=== PATIENT | female | born 2000 | race Caucasian/White ===

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

== ENCOUNTER 2022-08-31 06:19 | Inpatient (IN) | payer BC ==
[2022-08-31] MEDS: CYTOTEC PO SCH ×4 (14:22→21:07)
[2022-08-31 14:43] LABS: Absolute Neutrophil Ct (ANC) 5.94 x10^3/uL (1.4-6.9); BASOPHIL % 0.4 % (0.0-0.4); Basophil (Absolute #) 0.04 x10^3/uL (0-0.4); Eosinophil % 0.2 % (0.00-5.0); Eosinophil (Absolute #) 0.02 x10^3/uL (0-0.5); Hematocrit 34.1 % (35-47); Hemoglobin 10.6 g/dL (12.0-16.0); IMMATURE GRAN # 0.04 x10^3u/L (0.00-0.03); IMMATURE GRAN % 0.4 % (0.00-0.4); Lymphocyte (Absolute #) 2.34 x10^3/uL (1.0-4.6); Lymphocytes % 26.1 % (24.0-44.0); Mean Corpuscular Hemoglobin 26.1 pg (26-32); Mean Corpuscular Hgb Concent. 31.1 g/dL (32-36); Monocyte (Absolute #) 0.58 x10^3/uL (0.0-1.3); Monocytes % 6.5 % (0.0-12.0); Neutrophil % 66.4 % (36.0-66.0); Platelet Count 206 x10^3/uL (150-450); Red Blood Count 4.06 x10^6/uL (4.1-5.4); Red Cell Distribution Width 14.1 % (11.5-14.0)
[2022-08-31 15:22] LABS: ABO TYPING A; Antibody Screen NEGATIVE (NEGATIVE); RH TYPING POSITIVE
[2022-08-31 15:27] LABS: Amphetamine,Urine NEGATIVE (NEGATIVE); Barbiturate,Urine NEGATIVE (NEGATIVE); Benzodiazepine,Urine NEGATIVE (NEGATIVE); Cocaine,Urine NEGATIVE (NEGATIVE); Methadone,Urine NEGATIVE (NEGATIVE); Opiate,Urine NEGATIVE (NEGATIVE); PCP,Urine NEGATIVE (NEGATIVE); THC,Urine NEGATIVE (NEGATIVE)
[2022-08-31] MEDS ORDERED: Zofran 4 MG/2 ML VIAL IV PRN (20:00)
[2022-08-31] MEDS ORDERED: XYLOCAINE 1% HCL 20 ML MDV IJ PRN (20:00)
[2022-09-01] MEDS: CYTOTEC PO SCH ×3 (01:15→05:50)
[2022-09-01] MEDS ORDERED: Ephedrine Sulfate 50 MG/ML IV PRN (06:00)
[2022-09-01] MEDS ORDERED: FENTANYL 2 MCG-BUPIV 0.125%-NS 250 ML Epidur 250 ML EPIDURAL SCH (06:00)
[2022-09-01] MEDS: Lactated Ringers 1,000 ML IV SCH ×3 (06:30→15:08)
[2022-09-01] MEDS ORDERED: Lactated Ringers 1,000 ML IV ONE (06:32)
[2022-09-01] MEDS ORDERED: PITOCIN 30 UNITS/ LR 500 ML 500 ML IV ONE (07:52)
[2022-09-01] MEDS ORDERED: PITOCIN 30 UNITS/ LR 500 ML 30 UNITS/500 ML PLAST..BAG IV SCH (08:30)
[2022-09-01] MEDS ORDERED: NORCO 5/325 MG PO PRN (16:18)
[2022-09-01] MEDS ORDERED: TYLENOL EXTRA STRENGTH 500 MG PO PRN (16:18)
[2022-09-01] MEDS ORDERED: LANSINOH 40 GM TOP PRN (16:18)
[2022-09-01] MEDS ORDERED: Dermoplast Spray TP PRN (16:18)
[2022-09-01] MEDS ORDERED: Mylicon 80MG PO PRN (16:18)
[2022-09-01] MEDS ORDERED: Dulcolax 10 MG SUPP PR PRN (16:18)
[2022-09-01] MEDS ORDERED: Ambien 10 MG PO PRN (16:18)
[2022-09-01] MEDS ORDERED: Anucort-HC SUPPOSITORY PR PRN (16:18)
[2022-09-01] MEDS ORDERED: CORTISONE 1% CREAM TP PRN (16:18)
[2022-09-01] MEDS ORDERED: Adacel Vial IM ONE (16:18)
[2022-09-01] MEDS: TUCKS TP PRN (17:18)
[2022-09-01] MEDS: TYLENOL EXTRA STRENGTH 500 MG PO PRN (18:17)
[2022-09-01] MEDS: MOTRIN 400 MG PO PRN (23:52)
[2022-09-02 05:01] LABS: Absolute Neutrophil Ct (ANC) 10.89 x10^3/uL (1.4-6.9); BASOPHIL % 0.3 % (0.0-0.4); Basophil (Absolute #) 0.05 x10^3/uL (0-0.4); Eosinophil % 0.3 % (0.00-5.0); Eosinophil (Absolute #) 0.04 x10^3/uL (0-0.5); Hematocrit 30.4 % (35-47); Hemoglobin 9.4 g/dL (12.0-16.0); IMMATURE GRAN # 0.06 x10^3u/L (0.00-0.03); IMMATURE GRAN % 0.4 % (0.00-0.4); Lymphocytes % 22.3 % (24.0-44.0); Mean Cell Volume 83.1 fL (78-100); Mean Corpuscular Hemoglobin 25.7 pg (26-32); Mean Corpuscular Hgb Concent. 30.9 g/dL (32-36); Mean Platelet Volume 11.5 fL (7.5-11.0); Monocyte (Absolute #) 0.84 x10^3/uL (0.0-1.3); Monocytes % 5.5 % (0.0-12.0); Neutrophil % 71.2 % (36.0-66.0); Platelet Count 187 x10^3/uL (150-450); Red Blood Count 3.66 x10^6/uL (4.1-5.4); Red Cell Distribution Width 14.3 % (11.5-14.0); White Blood Count 15.3 x10^3/uL (4.0-10.5)
--- NOTE | 2022-09-02 06:59 | PCM.NOTE ---
Date and Time: 09/02/2257 Subjective Assessment: ppd 1 sp pt resting in bed and doing well without complaints able to ambulate and tolerate diet vss afebrile abd; soft uterus; firm lochia; mild a/p sp ppd 1 anticipate discharge home tomorrow continue present management OBJECTIVE DATA Vital Signs: Vital Signs - 24 hr Temp Pulse Resp BP BP Pulse Ox 09/02/22 04:00 98.0 F 81 16 123/81 98 09/02/22 00:00 99 F 80 18 123/70 09/01/22 20:00 97.6 F 89 16 121/83 97 09/01/22 17:35 69 16 128/74 09/01/22 16:50 79 20 121/68 100 09/01/22 16:30 83 20 124/77 100 09/01/22 16:25 83 20 124/77 100 09/01/22 15:35 90 20 131/64 100 09/01/22 15:15 118 H 22 138/87 09/01/22 15:00 86 22 135/74 09/01/22 14:45 86 22 153/73 09/01/22 14:30 90 22 136/69 09/01/22 14:15 102 H 22 136/69 09/01/22 14:00 102 H 22 136/69 09/01/22 13:45 102 H 22 132/77 09/01/22 13:30 104 H 18 124/77 09/01/22 13:15 99 H 18 138/86 09/01/22 13:00 85 18 114/63 09/01/22 12:45 84 18 115/64 09/01/22 12:30 78 18 113/60 09/01/22 12:15 80 18 117/62 09/01/22 12:00 80 18 119/75 119/75 09/01/22 11:44 83 18 118/74 09/01/22 11:30 18 103/70 09/01/22 11:15 81 18 119/77 09/01/22 11:00 85 18 126/70 09/01/22 10:45 85 18 105/60 09/01/22 10:30 74 20 120/76 09/01/22 10:15 73 18 115/69 09/01/22 10:00 98.2 F 73 18 09/01/22 09:00 98.2 F 68 22 103/61 100 09/01/22 08:00 98.1 F 68 22 119/74 119/74 100 Pain Assessment - Last Documented Pain Intensity [Lower Anterior 2 ] Pain Intensity 4 Pain Scale Used 0-10 Pain Scale Intake and Output: Intake & Output 08/30/22 08/31/22 09/01/22 09/02/22 11:59 11:59 11:59 11:59 Intake Total 1999 1999 Output Total 1600 2200 Balance 400 -200 Weight 74.843 kg Lab Results: Lab Results-Last 24 Hours 09/02/22 Range/Units 04:57 WBC 15.3 H (4.0-10.5) x10^3/uL RBC 3.66 L (4.1-5.4) x10^6/uL Hgb 9.4 L (12.0-16.0) g/dL Hct 30.4 L (35-47) % MCV 83.1 (78-100) fL MCH 25.7 L (26-32) pg MCHC 30.9 L (32-36) g/dL RDW 14.3 H (11.5-14.0) % Plt Count 187 (150-450) x10^3/uL MPV 11.5 H (7.5-11.0) fL Gran % 71.2 H (36.0-66.0) % Immature Gran % (Auto) 0.4 (0.00-0.4) % Nucleat RBC Rel Count 0.0 (0.00-0.1) % Eos # (Auto) 0.04 (0-0.5) x10^3/uL Immature Gran # (Auto) 0.06 H (0.00-0.03) x10^3u/L Absolute Lymphs (auto) 3.40 (1.0-4.6) x10^3/uL Absolute Monos (auto) 0.84 (0.0-1.3) x10^3/uL Absolute Nucleated RBC 0.00 (0.00-0.01) x10^3u/L Lymphocytes % 22.3 L (24.0-44.0) % Monocytes % 5.5 (0.0-12.0) % Eosinophils % 0.3 (0.00-5.0) % Basophils % 0.3 (0.0-0.4) % Absolute Granulocytes 10.89 H (1.4-6.9) x10^3/uL Basophils # 0.05 (0-0.4) x10^3/uL Assessment/Plan (1) Vaginal delivery Current Visit: Yes Status: Acute Code(s): O80 - ENCOUNTER FOR FULL-TERM UNCOMPLICATED DELIVERY
[2022-09-02] MEDS: Docusate Sodium 100 MG PO SCH ×3 (08:44→20:41)
[2022-09-02] MEDS: FERREX 150 PO SCH (08:45)
[2022-09-02] MEDS: MOTRIN 400 MG PO PRN ×2 (09:19→16:34)
[2022-09-02] MEDS: TYLENOL EXTRA STRENGTH 500 MG PO PRN (14:13)
[2022-09-02] MEDS: TUCKS TP PRN (23:24)
[2022-09-03] MEDS: TYLENOL EXTRA STRENGTH 500 MG PO PRN (08:04)
--- NOTE | 2022-09-03 10:20 | PCM.NOTE ---
Date and Time: 09/03/22 1018 Subjective Assessment: ppd 2 sp pt resting in bed and doing well withouti complaints. vss afebrile abd; soft uterus; firm lochia; mild hgb; 9.4 a/p sp ppd 2 dc home today fu office 3 wks OBJECTIVE DATA Vital Signs: Vital Signs - 24 hr Temp Pulse Resp BP Pulse Ox 09/03/22 08:00 98.4 F 79 16 116/77 98 09/03/22 02:00 97.8 F 82 16 132/82 99 09/02/22 20:00 98.2 F 76 16 124/87 99 09/02/22 14:00 97.4 F 87 18 116/75 98 Pain Assessment - Last Documented Pain Intensity [Lower Anterior 1 ] Pain Intensity 1 Pain Scale Used 0-10 Pain Scale Intake and Output: Intake & Output 08/31/22 09/01/22 09/02/22 09/03/22 11:59 11:59 11:59 11:59 Intake Total 1999 2200 600 Output Total 1600 2200 Balance 400 0 600 Weight 74.843 kg Assessment/Plan (1) Vaginal delivery Current Visit: Yes Status: Acute Code(s): O80 - ENCOUNTER FOR FULL-TERM UNCOMPLICATED DELIVERY
--- NOTE | 2022-09-03 10:29 | PCM.DS ---
Discharge Summary Date of Admission: 09/01/22 06:19 Admitting Physician: ANDRES BLEVINS DO Consults: Consults on Case 09/01/22 16:18 Notify Physician ROUTINE 09/02/22 09:00 Navigation ONCE Primary Care Provider: ANDRES BLEVINS DO Allergies Allergies Penicillins Allergy (Verified 08/31/22 14:25) Hospital Summary - Hospital Course Hospital Course: pt admitted on august 31 for oral cytotec and subsequently delivered on september 01 after pitocin given and delivered live baby boy without complication. pt had been at 39 wks gestation at time of admission. during period did well able to ambulate and tolerate diet. hgb stable at 9.4. pt advised to fu in office in 3 wks for check. all questions answered to her satisfaction and at this time stable for discharge. - Vitals & Intake/Output Vital Signs: Vital Signs Temperature 98.4 F 09/03/22 08:00 Pulse Rate 79 09/03/22 08:00 Respiratory Rate 16 09/03/22 08:00 Blood Pressure 116/77 09/03/22 08:00 O2 Sat by Pulse Oximetry 98 09/03/22 08:00 Intake & Output: Intake & Output 08/31/22 09/01/22 09/02/22 09/03/22 11:59 11:59 11:59 11:59 Intake Total 2000 2200 600 Output Total 1600 2200 Balance 400 0 600 Weight 74.843 kg - Lab Result Diagrams: 09/02/22 04:57 - Procedures and Test Procedures and Tests throughout Hospitalization: Therapy Orders & Screens 09/01/22 15:52 Standby ROUTINE Comment: Diagnosis: IUP/Induction of labor Final Diagnosis/Problem List - Final Discharge Diagnosis/Problem (1) Vaginal delivery Current Visit: Yes Status: Acute Code(s): O80 - ENCOUNTER FOR FULL-TERM UNCOMPLICATED DELIVERY - Discharge Disposition: Home, Self-Care Condition: Stable Prescriptions: No Action Vit No.179/Iron/Folic [ Tablet] 1 each PO DAILY Follow up with: ANDRES BLEVINS DO [Primary Care Provider] - 3 weeks (should call me for any issues that may arise)
[2022-09-03] MEDS: Docusate Sodium 100 MG PO SCH ×3 (10:31→10:36)
[2022-09-03] MEDS: FERREX 150 PO SCH (10:31)
[2022-09-03 15:52] VITALS: BP 126/83; PULSE 88; O2SAT 97
[2022-09-03] MEDS: TUCKS TP PRN (16:20)
== END 2022-09-03 17:30 | disposition home or self-care (01) | DRG 807 ==
LOC: OB 06:19 → OBSVTOIN 09-01 06:19
PROVIDERS: ADMIT Obstetrics & Gynecology; ATTEND Obstetrics & Gynecology
PROC: 10E0XZZ Delivery of Products of Conception, External Approach (ICD-10-PCS; principal; 2022-09-01)
PROC: 0KQM0ZZ Repair Perineum Muscle, Open Approach (ICD-10-PCS; 2022-09-01)
DX: O70.1 Second degree perineal laceration during delivery (principal); Z37.0 Single live birth; O69.81X0 Labor and delivery complicated by cord around neck, without compression, not applicable or unspecified; Z3A.39 39 weeks gestation of pregnancy; Z20.828 Contact with and (suspected) exposure to other viral communicable diseases
CPT/HCPCS: 36415; 80307; 85025; 86850; 86900; 86901; 88720; 90715; 94799; G0010; G0378; J2590; A9270-GY